=== PATIENT | male | born 1995 | race African-American/Black ===

== ENCOUNTER 2022-02-26 02:43 | Emergency (ER) | payer MEDICAID ==
[~2022-02-26] VITALS: Ht 180.3 cm; Wt 84.2 kg
[2022-02-26 02:53] VITALS: BP 122/77
--- NOTE | 2022-02-26 02:56 | NUR ---
PT TAKEN TO BED 11. GIVEN URINE CUP FOR URINE SPECIMEN COLLECTION.
--- NOTE | 2022-02-26 03:09 | NUR ---
26 Y/O MALE BIBS FROM HOME, C/O X2 EPISODES OF HEMATURIA ON MONDAY. DENIES BLOOD IN URINE AT THIS TIME. DENIES FLANK PAIN AND ABD PAIN. DENIES TRAUMA. HX:ASTHMA RX:ALBUTEROL NKA
--- NOTE | 2022-02-26 03:36 | NUR ---
ER MD AT BEDSIDE EXAMINING PT
[2022-02-26 03:45] LABS: APPEARANCE,URINE CLEAR (CLEAR); BILIRUBIN,URINE NEGATIVE (NEGATIVE); BLOOD, URINE 3+ (NEGATIVE); COLOR,URINE YELLOW (YELLOW); LEUKOCYTE ESTERASE ,URINE NEGATIVE (NEGATIVE); NITRITE, URINE NEGATIVE (NEGATIVE); UGLUCOSE NEGATIVE (NEGATIVE)
[2022-02-26 03:49] LABS: RBC,URINE TOO NUMEROUS TO COUN /HPF (0-5); WBC,URINE 0-5 /HPF (0-5)
[2022-02-26] MEDS ORDERED: cephALEXin 500 MG CAP PO ONE (04:00)
--- NOTE | 2022-02-26 04:18 | NUR ---
ultrasound at bedside
[2022-02-26 04:46] LABS: BASOPHILS # (AUTO) 0.1 K/uL (0.00-0.22); BASOPHILS % (AUTO) 1.3 % (0.0-2.0); EOSINOPHILS # (AUTO) 0.2 K/uL (0-0.4); EOSINOPHILS % (AUTO) 2.2 % (0.0-4.0); HEMATOCRIT 43.7 % (36-52); HEMOGLOBIN 14.4 g/dL (12.0-18.0); LYMPHOCYTES # (AUTO) 1.9 K/uL (2.0-11.5); MEAN CORPUSCULAR HEMOGLOBIN 30 pg (27-31); MEAN CORPUSCULAR HGB CONC 33 g/dL (33-37); MEAN CORPUSCULAR VOLUME 90.7 fL (80-94); MONOCYTES # (AUTO) 0.6 K/uL (0.8-1.0); MONOCYTES % (AUTO) 7.1 % (1.7-9.3); NEUTROPHILS # (AUTO) 5.2 K/uL (1.8-7.7); NEUTROPHILS % (AUTO) 65.4 % (42.2-75.2); PLATELET COUNT (AUTO) 253 K/uL (140-450); RED BLOOD CELL COUNT(AUTO) 4.82 MIL/uL (4.20-6.10)
[2022-02-26 05:13] LABS: ALBUMIN 3.8 g/dL (3.4-5.0); ANION GAP 7.6 (8-16); CARBON DIOXIDE 28.3 mmol/L (21-32); CREATININE 0.9 mg/dL (0.6-1.3); POTASSIUM 3.9 mmol/L (3.5-5.1); TOTAL BILIRUBIN 0.3 mg/dL (0.0-1.0)
[2022-02-26 06:21] LABS: PROTHROMBIN TIME 11.2 secs (10.8-13.4)
--- NOTE | 2022-02-26 07:20 | NUR ---
transfer of care report given to jatin desir
[2022-02-26] MEDS ORDERED: TAMS0.4C96 PO (07:22)
[2022-02-26] MEDS ORDERED: CEPH-588 PO (07:22)
[2022-02-26] MEDS ORDERED: IBUP-2213 PO (07:23)
[2022-02-26 07:41] VITALS: BP 116/72
--- NOTE | 2022-02-26 07:43 | NUR ---
Patient discharged with v/s stable. Written and verbal after care instructions given and explained. Patient alert, oriented and verbalized understanding of instructions. Ambulatory with steady gait. All questions addressed prior to discharge. ID band removed. Patient advised to follow up with PMD. Rx of KEFLEX, IBUPROFEN, FLOMAX given. Patient educated on indication of medication including possible reaction and side effects. Opportunity to ask questions provided and answered.
== END 2022-02-26 07:43 | disposition home or self-care (01) ==
LOC: MED 02:43
DX: N39.0 Urinary tract infection, site not specified (principal); R31.9 Hematuria, unspecified; J45.909 Unspecified asthma, uncomplicated; F12.90 Cannabis use, unspecified, uncomplicated
CPT/HCPCS: 36415; 76770; 80053; 81001; 85025; 85610; 99284; Q0092

== ENCOUNTER 2022-10-01 06:45 | Emergency (ER) | payer MEDICAID ==
[~2022-10-01] VITALS: Ht 182.9 cm; Wt 93.9 kg
[~2022-10-01 06:45] MED LIST: CEPH-588 PO; IBUP-2213 PO; TAMS0.4C96 PO
[2022-10-01 06:54] VITALS: BP 139/90
--- NOTE | 2022-10-01 06:57 | NUR ---
TO LOBBY A/W BED AMBULATORY
--- NOTE | 2022-10-01 07:01 | NUR ---
SEEN AND EXAMINED BY SO
[2022-10-01] MEDS ORDERED: ALBU117P INH (07:05)
[2022-10-01 07:08] VITALS: BP 139/90
--- NOTE | 2022-10-01 07:08 | NUR ---
Patient discharged with v/s stable. Written and verbal after care instructions given and explained. Patient alert, oriented and verbalized understanding of instructions. Ambulatory with steady gait. All questions addressed prior to discharge. ID band removed. Patient advised to follow up with PMD. Rx of PROAIR RESPICLICK given. Patient educated on indication of medication including possible reaction and side effects. Opportunity to ask questions provided and answered.
== END 2022-10-01 07:08 | disposition home or self-care (01) ==
LOC: MED 06:45
DX: J45.909 Unspecified asthma, uncomplicated (principal)
CPT/HCPCS: 99281

== ENCOUNTER 2023-12-18 09:34 | Emergency (ER) | payer MEDICAID ==
[~2023-12-18] VITALS: Ht 182.9 cm; Wt 112.3 kg
[~2023-12-18 09:34] MED LIST changes: +ALBU117P INH
[2023-12-18 09:51] VITALS: BP 137/79; PULSE 78; RESP 20; TEMP 98.7; O2SAT 98
[2023-12-18 11:13] LABS: BASOPHILS % (AUTO) 0.7 % (0.0-2.0); EOSINOPHILS # (AUTO) 0.2 K/uL (0-0.4); EOSINOPHILS % (AUTO) 2.5 % (0.0-4.0); HEMATOCRIT 44.7 % (36-52); HEMOGLOBIN 15.2 g/dL (12.0-18.0); LYMPHOCYTES # (AUTO) 2.2 K/uL (2.0-11.5); LYMPHOCYTES % (AUTO) 32.1 % (20.5-51.1); MEAN CORPUSCULAR HEMOGLOBIN 30 pg (27-31); MEAN CORPUSCULAR HGB CONC 34 g/dL (33-37); MEAN CORPUSCULAR VOLUME 89.1 fL (80-94); MONOCYTES # (AUTO) 0.6 K/uL (0.8-1.0); MONOCYTES % (AUTO) 9.2 % (1.7-9.3); NEUTROPHILS # (AUTO) 3.8 K/uL (1.8-7.7); NEUTROPHILS % (AUTO) 55.5 % (42.2-75.2); PLATELET COUNT (AUTO) 266 K/uL (140-450); RED BLOOD CELL COUNT(AUTO) 5.02 MIL/uL (4.20-6.10); RED CELL DISTRIBUTION WIDTH 13.1 % (11.6-13.7); WHITE BLOOD COUNT (AUTO) 6.8 K/uL (4.8-10.8)
[2023-12-18] MEDS: KETOROLAC 30 MG/ML VIAL IM ONE (11:23)
[2023-12-18] MEDS: ONDANSETRON 4 MG ODT PO ONE (11:24)
[2023-12-18 11:27] LABS: APPEARANCE,URINE CLEAR (CLEAR); BILIRUBIN,URINE NEGATIVE (NEGATIVE); BLOOD, URINE 3+ (NEGATIVE); COLOR,URINE YELLOW (YELLOW); LEUKOCYTE ESTERASE ,URINE TRACE (NEGATIVE); NITRITE, URINE NEGATIVE (NEGATIVE); PROTEIN,URINE NEGATIVE (NEGATIVE); UGLUCOSE NEGATIVE (NEGATIVE)
[2023-12-18 11:29] LABS: ANION GAP 10.3 (8-16); CALCIUM 10.4 mg/dL (8.5-10.1); CARBON DIOXIDE 30.2 mmol/L (21-32); CREATININE 1.2 mg/dL (0.6-1.3); POTASSIUM 3.5 mmol/L (3.5-5.1)
[2023-12-18 11:35] LABS: ALBUMIN 4.2 g/dL (3.4-5.0); BILIRUBIN,DIRECT 0.2 mg/dL (0.0-0.3); TOTAL BILIRUBIN 0.6 mg/dL (0.0-1.0); TOTAL PROTEIN, SERUM 7.5 g/dL (6.4-8.2)
[2023-12-18 12:08] LABS: BACTERIA,URINE 1+ /HPF (None Seen); RBC,URINE 11-20 (MOD) /HPF (0-5); SQUAMOUS EPITHELIAL CELL,UR 0-3 (FEW) /LPF (0-3 (FEW)); WBC,URINE 0-5 /HPF (0-5)
[2023-12-18] MEDS ORDERED: IBUP-2218 PO (12:35)
[2023-12-18] MEDS ORDERED: ONDA-188 SL (12:35)
[2023-12-18] MEDS ORDERED: TAMS0.4C96 PO (12:35)
== END 2023-12-18 12:41 | disposition home or self-care (01) ==
LOC: MED 09:34
DX: N20.0 Calculus of kidney (principal); J45.909 Unspecified asthma, uncomplicated; Z79.1 Long term (current) use of non-steroidal anti-inflammatories (NSAID); Z79.899 Other long term (current) drug therapy
CPT/HCPCS: 36415; 74176; 80048; 80076; 81001; 83690; 85025; 87086; 96372; 99285; J1885; Q0162